=== PATIENT | female | born 1995 | race Two or more races ===

== ENCOUNTER 2020-10-04 14:25 | Emergency (ER) | payer OTHER ==
[~2020-10-04] VITALS: Ht 157.5 cm; Wt 53.1 kg
== END 2020-10-04 16:52 | disposition home or self-care (01) ==
LOC: ER 14:25
DX: N76.0 Acute vaginitis (principal)

== ENCOUNTER 2021-04-20 12:46 | Emergency (ER) | payer OTHER ==
[~2021-04-20] VITALS: Ht 157.5 cm; Wt 54.4 kg
== END 2021-04-20 17:06 | disposition home or self-care (01) ==
LOC: ER 12:46
DX: S30.814A Abrasion of vagina and vulva, initial encounter (principal); X58.XXXA Exposure to other specified factors, initial encounter; Y93.9 Activity, unspecified; Y92.9 Unspecified place or not applicable; Z03.818 Encounter for observation for suspected exposure to other biological agents ruled out